=== PATIENT | female | born 1930 | race Caucasian/White ===

== ENCOUNTER → 2016-11-26 | Outpatient (CLI) | payer OTHER, MEDICARE | LOC: BMCIMAGING 14:14 | PROVIDERS: ATTEND Internal Medicine Cardiovascular Disease | DX: Z51.81 Encounter for therapeutic drug level monitoring (principal); I70.8 Atherosclerosis of other arteries; Z95.1 Presence of aortocoronary bypass graft ==

== ENCOUNTER 2017-02-08 19:37 | Inpatient (IN) | payer OTHER, MEDICARE ==
--- NOTE | 2017-02-08 19:49 | EDPHY ---
H & P Time Seen by Provider: 02/08/17 19:41 HPI/ROS: Chief complaint. Fever, altered mental status HPI. 86-year-old female who is aphasic for 7 years after a CVA here with her . History is obtained from the . She has been gradually slowing down and sleeping more in the past week. She had a regular checkup by her PCP on Friday 4 days ago and since that time she has been sleeping up to 16 hours a day and not eating or drinking. felt that maybe she had a fever. She has really had no increase in cough but does have a cough at night occasionally that is thought to be allergies. No urinary symptoms that he has been able to tell. ROS Constitutional. Generalized weakness, sleeping more Eyes. no problems with vision ENT. no sore throat, no nasal drainage Cardiovascular. no chest pain Respiratory. no shortness of breath, no cough Abdominal. no abdominal pain, no nausea/vomiting, no diarrhea . no problems urinating MS. no calf pain/swelling, no neck/back pain, no joint pain Skin. no rash Lymph. no swollen glands Neuro. Does not speak and has residual right-sided weakness after CVA Past Medical/Surgical History: Bypass surgery in 2004, CVA in 2008, dyslipidemia, pacemaker. She is on Eliquis for atrial fibrillation Social History: , nonsmoker, no Smoking Status: Never smoked Physical Exam: Alert well-developed female who falls asleep frequently during the interview and is aphasic. Vital signs show temp 37.1degrees and O2 saturation 91% on room air Eyes: Pupils equal and round no pallor or injection. ENT, Mouth: Mucous membranes are moist. Respiratory: There are no retractions, lungs are clear to auscultation. Cardiovascular: Regular rate and rhythm. Gastrointestinal: Abdomen is soft and nontender, no masses, bowel sounds normal. Neurological: Awake but sleepy. Right-sided weakness worse in the right upper extremity Skin: Warm and dry, no rashes. Musculoskeletal: Neck is supple nontender. Extremities symmetrical, full range of motion. Psychiatric: Patient does not speak in is difficult to tell that she is oriented. She certainly does open her eyes to voice however Constitutional: Initial Vital Signs Temperature (C) 37.1 C 02/08/17 19:42 Heart Rate 88 02/08/17 19:42 Respiratory Rate 18 02/08/17 19:42 Blood Pressure 127/73 H 02/08/17 19:42 O2 Sat (%) 91 L 02/08/17 19:42 O2 Delivery Mode Room Air Allergies/Adverse Reactions: albuterol [Albuterol] Allergy (Intermediate, Verified 10/12/13 19:35) Other-Enter Comments erythromycin base [Erythromycin Base] Allergy (Intermediate, Verified 10/12/13 19:35) Other-Enter Comments Penicillins Allergy (Intermediate, Verified 10/12/13 19:35) Rash Sulfa (Sulfonamide Antibiotics) Allergy (Intermediate, Verified 10/12/13 19:35) Other-Enter Comments sulfamethoxazole [From Septra] Allergy (Intermediate, Verified 10/12/13 19:35) Other-Enter Comments ibuprofen [From Advil] Allergy (Verified 10/12/13 19:35) Unknown trimethoprim [From Septra] Allergy (Verified 10/12/13 19:35) ERYTHROMCIN Allergy (Intermediate, Uncoded 10/12/13 19:35) Diarrhea GENTAMYCIN Allergy (Mild, Uncoded 10/12/13 19:35) Other-Enter Comments Home Medications: Medication Instructions Recorded COUMADIN 06/15/09 Aspirin 07/27/09 Coumadin 3 mg 07/27/09 Hydrochlorothiazide 07/27/09 Cephalexin 10/12/13 Lipitor 40 mg (RX) 10/12/13 TOPIRAMATE 10/12/13 Medical Decision Making - Diagnostics EKG Interpretation: EKG interpreted by me shows paced complexes with underlying atrial fibrillation. Borderline left axis deviation. No significant ST elevation or depression. Rate 79 Imaging Results: Imaging Impressions Chest X-Ray 02/08/17 19:48 Impression: No evidence for acute cardiopulmonary abnormality. Noncontrast head CT reviewed by me shows atrophy and old left large CVA. No evidence of acute bleed tonight Procedures: IV normal saline, sepsis workup Initial serum lactate is 3.0. Patient is being given fluids. Repeat lactate is ordered. Cath urine is yet to be performed. Patient going for head CT. Urinalysis is pending. While the lactate is elevated I suspect that this is due to dehydration and so far no evidence for infection ED Course/Re-evaluation: IV normal saline. Patient is given 30 milliliters/kilogram fluid bolus. She is fairly serial barely diff hydrated. She has elevated troponin as well as I have discussed findings with the patient and her . We discussed treatment plan including recommendation for admission. They expressed understanding and agreement I discussed the case with Dr. Gaona who will see the patient in the emergency department. She agrees to the admission Differential Diagnosis: I considered dehydration, sepsis including pneumonia and urinary tract infection. I considered CVA and intracranial bleeding is the patient is on blood thinners. Patient has an elevated troponin but no ST elevation on EKG - Data Points Laboratory Results: Laboratory Results 02/08/17 20:07 02/08/17 20:07 02/08/17 02/08/17 02/08/17 20:07 20:07 20:07 WBC 7.51 10^3/uL 10^3/uL (3.80-9.50) RBC 4.11 10^6/uL L 10^6/uL (4.18-5.33) Hgb 14.0 g/dL g/dL (12.6-16.3) Hct 44.2 % % (38.0-47.0) MCV 107.5 fL H fL (81.5-99.8) MCH 34.1 pg pg (27.9-34.1) MCHC 31.7 g/dL L g/dL (32.4-36.7) RDW 15.4 % H % (11.5-15.2) Plt Count 121 10^3/uL L 10^3/uL (150-400) MPV 11.3 fL fL (8.7-11.7) Neut % (Auto) 77.6 % H % (39.3-74.2) Lymph % (Auto) 16.5 % % (15.0-45.0) Door % (Auto) 5.5 % % (4.5-13.0) Eos % (Auto) 0.0 % L % (0.6-7.6) Baso % (Auto) 0.1 % L % (0.3-1.7) Nucleat RBC Rel Count 0.0 % % (0.0-0.2) Absolute Neuts (auto) 5.83 10^3/uL 10^3/uL (1.70-6.50) Absolute Lymphs (auto) 1.24 10^3/uL 10^3/uL (1.00-3.00) Absolute Monos (auto) 0.41 10^3/uL 10^3/uL (0.30-0.80) Absolute Eos (auto) 0.00 10^3/uL L 10^3/uL (0.03-0.40) Absolute Basos (auto) 0.01 10^3/uL L 10^3/uL (0.02-0.10) Absolute Nucleated RBC 0.00 10^3/uL 10^3/uL (0-0.01) Immature Gran % 0.3 % % (0.0-1.1) Immature Gran # 0.02 10^3/uL 10^3/uL (0.00-0.10) PT 20.2 SEC H SEC (12.0-15.0) INR 1.72 H (0.83-1.16) APTT 31.4 SEC SEC (23.0-38.0) VBG Lactic Acid Sodium 157 mEq/L H mEq/L (134-144) Potassium 3.7 mEq/L mEq/L (3.5-5.2) Chloride 122 mEq/L H mEq/L (97-110) Carbon Dioxide 20 mEq/l L mEq/l (22-31) Anion Gap 15 mEq/L mEq/L (8-16) BUN 54 mg/dL H mg/dL (7-23) Creatinine 1.5 mg/dL H mg/dL (0.6-1.0) Estimated GFR 33 Glucose 242 mg/dL H mg/dL (70-100) Calcium 9.4 mg/dL mg/dL (8.5-10.4) Total Bilirubin 0.8 mg/dL mg/dL (0.1-1.4) Troponin I 0.035 ng/mL H ng/mL (0-0.034) 02/08/17 20:07 WBC RBC Hgb Hct MCV MCH MCHC RDW Plt Count MPV Neut % (Auto) Lymph % (Auto) Door % (Auto) Eos % (Auto) Baso % (Auto) Nucleat RBC Rel Count Absolute Neuts (auto) Absolute Lymphs (auto) Absolute Monos (auto) Absolute Eos (auto) Absolute Basos (auto) Absolute Nucleated RBC Immature Gran % Immature Gran # PT INR APTT VBG Lactic Acid 3.0 mmol/L H mmol/L (0.7-2.1) Sodium Potassium Chloride Carbon Dioxide Anion Gap BUN Creatinine Estimated GFR Glucose Calcium Total Bilirubin Troponin I Medications Given: Discontinued Medications Sodium Chloride (Ns) 1,000 mls @ 0 mls/hr IV ONCE ONE; Wide Open PRN Reason: Protocol Stop: 02/08/17 20:10 Last Admin: 02/08/17 20:24 Dose: 1,000 mls Departure - Departure Disposition: [facility] Inpatient Acute Clinical Impression: Dehydration, Elevated troponin Altered mental status Qualifiers: Altered mental status type: disorientation Qualified Code(s): R41.0 - Disorientation, unspecified Condition: Fair Referrals: Laila Linn MD [Primary Care Provider] - As per Instructions
[2017-02-08] MEDS ORDERED: NS 1,000 ML IV ONE (20:09)
[2017-02-08 20:20] LABS: % IMMATURE GRANULYOCYTES 0.3 % (0.0-1.1); ABSOLUTE IMMATURE GRANULOCYTES 0.02 10^3/uL (0.00-0.10); ADD DIFF? NO; ADD MORPH? NO; ADD SCAN? NO; ATYPICAL LYMPHOCYTE FLAG 0 (0-99); FRAGMENT RBC FLAG 0 (0-99); HEMATOCRIT 44.2 % (38.0-47.0); LEFT SHIFT FLG 0 (0-99); LIPEMIA HEMOLYSIS FLAG 80 (0-99); MEAN CELL HEMOGLOBIN 34.1 pg (27.9-34.1); MEAN CELL HEMOGLOBIN CONCENTR. 31.7 g/dL (32.4-36.7); MEAN CELL VOLUME 107.5 fL (81.5-99.8); MEAN PLATELET VOLUME 11.3 fL (8.7-11.7); PLATELET CLUMPS FLAG 0 (0-99); PLATELET COUNT 121 10^3/uL (150-400); RED BLOOD CELL COUNT 4.11 10^6/uL (4.18-5.33); RED CELL DISTRIBUTION WIDTH 15.4 % (11.5-15.2)
[2017-02-08 20:29] LABS: INR 1.72 (0.83-1.16); PROTIME(PATIENT) 20.2 SEC (12.0-15.0)
[2017-02-08 20:30] LABS: APTT 31.4 SEC (23.0-38.0)
[2017-02-08 20:31] LABS: ANION GAP 15 mEq/L (8-16); BILIRUBIN,TOTAL 0.8 mg/dL (0.1-1.4); CALCIUM 9.4 mg/dL (8.5-10.4); CARBON DIOXIDE 20 mEq/l (22-31); CHLORIDE 122 mEq/L (97-110); CREATININE 1.5 mg/dL (0.6-1.0); GLOMERULAR FILTRATION RATE 33; GLUCOSE 242 mg/dL (70-100); POTASSIUM 3.7 mEq/L (3.5-5.2); SODIUM 157 mEq/L (134-144)
[2017-02-08] MEDS ORDERED: NS 1,300 ML IV ONE (20:33)
[2017-02-08 20:42] LABS: TROPONIN I 0.035 ng/mL (0-0.034)
--- NOTE | 2017-02-08 20:59 | CPEKG ---
Heart Rate: 79 RR Interval: 759 P-R Interval: 184 QRSD Interval: 98 QT Interval: 428 QTC Interval: 491 P [place]: 0 QRS [place]: 0 T Wave [place]: 113 EKG Severity - ABNORMAL ECG - EKG Impression: ATRIAL-PACED COMPLEXES EKG Impression: LEFT ATRIAL ABNORMALITY EKG Impression: NONSPECIFIC T ABNORMALITIES, ANT-LAT LEADS EKG Impression: BORDERLINE PROLONGED QT INTERVAL Electronically Signed By: Andrea Mills 08-Feb-2017 21:12:28
[2017-02-08 21:14] LABS: LACGHOST ORDER
[2017-02-08 21:23] LABS: COLOR AMBER; LEUKOCYTE ESTERASE,URINE TRACE (NEGATIVE); NITRITE,URINE NEGATIVE (NEGATIVE)
[2017-02-08 21:26] LABS: AMORPHOUS PRESENT /hpf (NONE-1+); BACTERIA TRACE /hpf (NONE SEEN); MUCUS 1+ /lpf (NONE-1+)
[2017-02-08] MEDS ORDERED: ONDANSETRON 4 MG/2 ML VIAL IVP PRN (21:56)
[2017-02-08] MEDS ORDERED: ACETAMINOPHEN 325 MG TAB PO PRN (21:56)
[2017-02-08] MEDS ORDERED: ONDANSETRON DISINTEGRATING 4 MG TAB PO PRN (21:56)
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
[2017-02-08] MEDS ORDERED: D5W 1,000 ML IV SCH (22:15)
[2017-02-09 03:30] LABS: TROPONIN I 0.031 ng/mL (0-0.034)
[2017-02-09 06:11] LABS: % IMMATURE GRANULYOCYTES 0.2 % (0.0-1.1); ABSOLUTE IMMATURE GRANULOCYTES 0.02 10^3/uL (0.00-0.10); ADD DIFF? NO; ADD MORPH? NO; ADD SCAN? NO; ATYPICAL LYMPHOCYTE FLAG 10 (0-99); FRAGMENT RBC FLAG 0 (0-99); HEMATOCRIT 33.9 % (38.0-47.0); HEMOGLOBIN 10.9 g/dL (12.6-16.3); LEFT SHIFT FLG 20 (0-99); LIPEMIA HEMOLYSIS FLAG 80 (0-99); MEAN CELL HEMOGLOBIN 34.6 pg (27.9-34.1); MEAN CELL HEMOGLOBIN CONCENTR. 32.2 g/dL (32.4-36.7); MEAN CELL VOLUME 107.6 fL (81.5-99.8); MEAN PLATELET VOLUME 11.4 fL (8.7-11.7); PLATELET CLUMPS FLAG 0 (0-99); PLATELET COUNT 65 10^3/uL (150-400); RED BLOOD CELL COUNT 3.15 10^6/uL (4.18-5.33); RED CELL DISTRIBUTION WIDTH 15.4 % (11.5-15.2)
[2017-02-09 06:13] LABS: ANION GAP 10 mEq/L (8-16); CALCIUM 7.8 mg/dL (8.5-10.4); CARBON DIOXIDE 17 mEq/l (22-31); CHLORIDE 125 mEq/L (97-110); CREATININE 0.9 mg/dL (0.6-1.0); GLOMERULAR FILTRATION RATE 60; GLUCOSE 143 mg/dL (70-100); SODIUM 152 mEq/L (134-144)
[2017-02-09] MEDS ORDERED: ENOXAPARIN 30 MG/0.3 ML SYR SC SCH (09:00)
[2017-02-09] MEDS ORDERED: NS 1,000 ML IV SCH (09:15)
[2017-02-09] MEDS ORDERED: PROTOCOL K PHOSPHATE 1 DOSE IV PRN (09:16)
[2017-02-09] MEDS ORDERED: PROTOCOL POTASSIUM 1 DOSE MISC PRN (09:16)
[2017-02-09] MEDS ORDERED: PROTOCOL MAGNESIUM 1 DOSE IV PRN (09:16)
[2017-02-09] MEDS ORDERED: ALTEPLASE 2 MG VIAL IVP PRN (10:05)
[2017-02-09] MEDS ORDERED: POTASSIUM CL 10 MEQ TAB PO ONE ×2 (10:21→21:21)
[2017-02-09] MEDS ORDERED: 1/2 NS 1,000 ML IV SCH (10:30)
[2017-02-09 10:34] LABS: POTASSIUM 3.1 mEq/L (3.5-5.2)
[2017-02-09] MEDS: CHOLECALCIFEROL VIT D3 1,000 UNITS TAB PO SCH (10:43)
[2017-02-09] MEDS: TOPIRAMATE 25 MG TAB PO SCH ×2 (10:43→20:00)
[2017-02-09] MEDS: MULTIVITAMINS 1 EACH TAB PO SCH (10:44)
[2017-02-09] MEDS: AMIODARONE HCL 200 MG TAB PO SCH (10:44)
[2017-02-09] MEDS: APIXABAN 2.5 MG TAB PO SCH ×2 (10:45→20:07)
[2017-02-09] MEDS: ASPIRIN 81 MG CHEWABLE TAB PO SCH (10:46)
--- NOTE | 2017-02-09 11:25 | ECHO ---
[id number] + + [address] : : [place] [address] : : [phone] + + Adult Echocardiographic Report + + :Name: EMMY QUEZADA MStudy Date: 02/09/2017 10:02 AM BP: 105/66 mmHg : : Hospital Admission Number: [id number] : :: 1930 Gender: Female Height: 60 in : :Age: 86 yrs Race: WH Weight: 95 lb : :Reason For Study: eval LVFX : : BSA: 1.4 meters2: :History: elev trop, CAD : + + MMode/2D Measurements \T\ Calculations IVSd: 0.92 cm LVIDd: 3.7 cm FS: 33.8 % Ao root diam: 2.6 cm LVPWd: 0.99 cm LVIDs: 2.4 cm EDV(Teich): 56.5 ml LA dimension: 2.9 cm ESV(Teich): 20.6 ml EF(Teich): 63.6 % Normal Measurement Values: + + :LVIDd (3.5-5.7cm) IVSd (0.6-1.1cm) LVPWd (0.6-1.1cm) Aortic Root (2.0-3.7cm)Left Atrium (1.5-4.0cm): :LV Vol(d) (76-115ml) LV Vol(s) (29-48ml) Ejec Fraction (50-65%)PV [place] (0.6- 1.2m/s) TV [place] (0.4-1.0m/s) : :MV E [place] (0.8-1.0m/s)MV A [place] (0.3-1.0m/s)LVOT [place] (0.7-1.2m/s) Asc Ao [place] ( 0.9-1.8m/s) : + + Doppler Measurements \T\ Calculations MV E max hernando: Ao V2 max: LV V1 max: PA V2 max: 66.6 cm/sec 76.0 cm/sec 86.9 cm/sec 71.9 cm/sec MV A max hernando: Ao max PG: LV V1 max PG: PA max P.6 cm/sec 2.3 mmHg 3.0 mmHg 2.1 mmHg MV E/A: 0.97 MV dec time: 0.27 sec TR max hernando: 192.7 cm/sec TR max P.9 mmHg Left Ventricle The left ventricle is normal in size and function. Mild concentric LVH noted. Ejection Fraction = 60-65%. No regional wall motion abnormalities noted. Right Ventricle The right ventricle is normal in size and function. Atria Mild left atrial enlargement by visual assessment. Right atrial size is normal. Mitral Valve There is no mitral valve stenosis. Mild MAC with no MV prolapse. There is mild mitral regurgitation. Tricuspid Valve The tricuspid valve is normal in structure and function. There is mild tricuspid regurgitation. Right ventricular systolic pressure is 20mmHg. Aortic Valve The aortic valve is trileaflet. Mild aortic sclerosis. There is no aortic stenosis. Mild AI noted. Pulmonic Valve The pulmonic valve is not well visualized. Great Vessels The aortic root is normal size. Pericardium/Pleural There is no pericardial effusion. Conclusion A two-dimensional transthoracic echocardiogram with M-mode and Doppler was performed. Limited apical and subcostals due to combative patient. 1)Normal LV size and systolic function with a LVEF of 64% and normal wall motions. 2)Mild concentric LVH. Pt combative and could not do full diastolic function testing. 3)Mild aortic valve sclerosis without stenosis. Mild AI noted. 4)Mild MR without MV prolapse. 5)Mild TR with estimated normal PA pressures. 6)Normal size ascending thoracic aorta with mild atheroma seen in vessel wong. Final Reading Physician: Derrick Winkler electronically signed on 02/09/2017 11:24 AM Ordering Physician: Judith Joya Performed By: Megha Sharp
--- NOTE | 2017-02-09 15:09 | HOSPPROG ---
Hospitalist Progress Note Assessment/Plan: * Hypernatremia due to hypovolemia -change IVF 1/2 NS to continue slow correction -goal 10 mEq/L in first 24 hours * Metabolic encephalopathy * h/o CVA (ischemic and hemorrhagic) with chronic right weak/aphasia * Afib s/p PCM -amiodarone, Eliquis * CAD/CABG * DM II * Malnutrition - dietary consult COR status - palliative care consult requested Subjective: screams every time we draw blood, poor IV access, screamed when they did ECHO. Seems uncomfortable Objective: Vital Signs Temp Pulse Resp BP Pulse Ox 36.4 C 76 18 118/71 93 02/09/17 12:00 02/09/17 12:00 02/09/17 12:00 02/09/17 12:00 02/09/17 12:00 Laboratory Results 02/09/17 05:50 02/09/17 10:30 02/08/17 02/09/17 02/10/17 05:59 05:59 05:59 Intake Total 1550 Output Total 50 Balance 1500 PT 20.2 SEC (12.0-15.0) H 02/08/17 20:07 INR 1.72 (0.83-1.16) H 02/08/17 20:07 CXR viewed, my personal interpretation is - negative Head CT - negative ECHO - normal EF - Physical Exam Constitutional: chronically ill appearing, uncomfortable, cachectic, No unkempt Cardiovascular: regular rate and rhythym, no murmur, rub, or gallop Respiratory: no respiratory distress, no rales or rhonchi, clear to auscultation Gastrointestinal: normoactive bowel sounds, soft, non-tender abdomen, no palpable masses Skin: no rashes or abrasions, no fluctuance, no induration Neurologic: No AAOx3 Psychiatric: encephalopathic, flat affect, agitated, No interacting appropriately ICD10 Worksheet Patient Problems: Problems Problem Status Onset Altered mental status Acute Dehydration Acute Elevated troponin Acute
[2017-02-09 19:18] LABS: POTASSIUM 3.7 mEq/L (3.5-5.2); SODIUM 150 mEq/L (134-144)
[2017-02-09] MEDS: ATORVASTATIN CALCIUM 40 MG TAB PO SCH (20:07)
[2017-02-09] MEDS ORDERED: POTASSIUM CL 20 MEQ/15 ML UDCUP PO ONE (21:30)
[2017-02-10] MEDS ORDERED: POTASSIUM Cl (KCl) 50 ML IV ONE (00:36)
[2017-02-10 03:27] LABS: % IMMATURE GRANULYOCYTES 0.3 % (0.0-1.1); ABSOLUTE IMMATURE GRANULOCYTES 0.03 10^3/uL (0.00-0.10); ADD DIFF? NO; ADD MORPH? NO; ADD SCAN? NO; ATYPICAL LYMPHOCYTE FLAG 0 (0-99); FRAGMENT RBC FLAG 0 (0-99); HEMATOCRIT 36.4 % (38.0-47.0); HEMOGLOBIN 11.8 g/dL (12.6-16.3); LEFT SHIFT FLG 0 (0-99); LIPEMIA HEMOLYSIS FLAG 80 (0-99); MEAN CELL HEMOGLOBIN 34.4 pg (27.9-34.1); MEAN CELL HEMOGLOBIN CONCENTR. 32.4 g/dL (32.4-36.7); MEAN CELL VOLUME 106.1 fL (81.5-99.8); MEAN PLATELET VOLUME 11.8 fL (8.7-11.7); PLATELET CLUMPS FLAG 20 (0-99); PLATELET COUNT 87 10^3/uL (150-400); RED BLOOD CELL COUNT 3.43 10^6/uL (4.18-5.33); RED CELL DISTRIBUTION WIDTH 14.8 % (11.5-15.2)
[2017-02-10 03:32] LABS: ANION GAP 6 mEq/L (8-16); CALCIUM 8.6 mg/dL (8.5-10.4); CARBON DIOXIDE 20 mEq/l (22-31); CHLORIDE 122 mEq/L (97-110); CREATININE 0.8 mg/dL (0.6-1.0); GLOMERULAR FILTRATION RATE > 60; GLUCOSE 94 mg/dL (70-100); MAGNESIUM 2.2 mg/dL (1.6-2.3); POTASSIUM 4.8 mEq/L (3.5-5.2); SODIUM 148 mEq/L (134-144)
[2017-02-10] MEDS: AMIODARONE HCL 200 MG TAB PO SCH (11:35)
[2017-02-10] MEDS: APIXABAN 2.5 MG TAB PO SCH (11:36)
[2017-02-10] MEDS: ASPIRIN 81 MG CHEWABLE TAB PO SCH (11:36)
[2017-02-10] MEDS: CHOLECALCIFEROL VIT D3 1,000 UNITS TAB PO SCH (11:36)
[2017-02-10] MEDS: MULTIVITAMINS 1 EACH TAB PO SCH (11:36)
[2017-02-10] MEDS: TOPIRAMATE 25 MG TAB PO SCH ×2 (11:59→21:11)
--- NOTE | 2017-02-10 14:42 | PDPCPN ---
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 Found to have hypernatremia from dehydration and started on IV fluids with slow correction in NA. Most recent level 145. Was DNR on previous admission but changed to full code by CAMACHO. Palliative care consulted for complex medical decision making. Met with John and daughter at the bedside this afternoon. John discussed how when Samantha had her stroke 7 years ago she was DNR but her full wishes were for continued medical care but per John there was a misunderstanding and she was made "comfort care only". He states he would not want her to have CPR or resuscitation but is hesitant to change her to DNR from their previous experience. He feels for now her wishes are for continued medical treatments to continue her good quality of life. She has caregivers at home as well as her family who are very involved. Discussed the MOST form and reviewed. John would like to think about it more before filling out the form. Assessment: Physical: - Pain: none - tylenol PRN - Poor appetite - encourage general diet - ensure/boost - Weakness - Has caregiver support at home - fall precautions Emotional/psychological: doing ok. Lots of support from family Advanced Care Planning: Is patient decisional?: No Code Status: Full- readdressed POA: John is MDPOA Plan: MOST form given to review. Will follow up again tomorrow for any additional questions. Subjective: non verbal Objective: Social History: to John. 5 children involved. Retired [employer]. Enjoys reading books and watching dancing with the stars. Medication list reviewed ROS: General: fatigue, weakness ENT: negative Resp: negative GI: poor appetite : negative MS: negative Skin: negative Neuro: chronic right sided weakness and aphasia Psych: negative Functional assessment: PPS: 50% Functional status: needs some assistance with ADLs. Vital Signs Temp Pulse Resp BP Pulse Ox 36.4 C 77 22 H 156/83 H 94 02/10/17 08:20 02/10/17 11:20 02/10/17 08:20 02/10/17 08:20 02/10/17 11:20 Laboratory Results 02/10/17 03:00 02/10/17 11:30 02/09/17 02/10/17 02/11/17 05:59 05:59 05:59 Intake Total 1550 1732 Output Total 50 Balance 1500 1732 PT 20.2 SEC (12.0-15.0) H 02/08/17 20:07 INR 1.72 (0.83-1.16) H 02/08/17 20:07 Physical Exam - Physical Exam General Appearance: alert, no apparent distress Respiratory: No respiratory distress, No accessory muscle use Skin: normal color, warm/dry Extremities: No pedal edema Neuro/Psych: alert, aphasia ICD10 Worksheet Patient Problems: Problems Problem Status Onset Altered mental status Acute Dehydration Acute Elevated troponin Acute Palliative care encounter Acute - ICD10 Problem Qualifiers (1) Palliative care encounter
--- NOTE | 2017-02-10 17:08 | HOSPPROG ---
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 no events tele (interp by me). partially alert Objective: Vital Signs Temp Pulse Resp BP Pulse Ox 36.4 C 83 18 124/69 H 93 02/10/17 15:32 02/10/17 15:32 02/10/17 15:32 02/10/17 15:32 02/10/17 15:32 Microbiology 02/08/17 21:15 Urine Culture - Final Urine,Clean Catch Three [place] Types Laboratory Results 02/10/17 03:00 02/10/17 11:30 02/09/17 02/10/17 02/11/17 05:59 05:59 05:59 Intake Total 1550 1732 Output Total 50 Balance 1500 1732 PT 20.2 SEC (12.0-15.0) H 02/08/17 20:07 INR 1.72 (0.83-1.16) H 02/08/17 20:07 - Physical Exam Constitutional: no apparent distress, appears nourished Eyes: PERRL, anicteric sclera Ears, Nose, Mouth, Throat: moist mucous membranes, hearing normal Cardiovascular: regular rate and rhythym, no murmur, rub, or gallop, No systolic murmur Respiratory: no respiratory distress, no rales or rhonchi Gastrointestinal: normoactive bowel sounds, soft, non-tender abdomen, No guarding, No rebound Genitourinary: no bladder fullness, No chicas in urethra Skin: warm, normal color, other (hand bleedimg under gauze) Musculoskeletal: No full muscle strength, No no muscle tenderness Neurologic: sensation intact bilaterally, No AAOx3 Psychiatric: interacting appropriately ICD10 Worksheet Patient Problems: Problems Problem Status Onset Altered mental status Acute Dehydration Acute Elevated troponin Acute Palliative care encounter Acute
[2017-02-10 20:00] LABS: POTASSIUM 3.7 mEq/L (3.5-5.2); SODIUM 144 mEq/L (134-144)
[2017-02-10] MEDS: ATORVASTATIN CALCIUM 40 MG TAB PO SCH (21:12)
[2017-02-10] MEDS ORDERED: POTASSIUM CL 10 MEQ TAB PO ONE (21:23)
[2017-02-11 05:32] LABS: % IMMATURE GRANULYOCYTES 0.3 % (0.0-1.1); ABSOLUTE IMMATURE GRANULOCYTES 0.02 10^3/uL (0.00-0.10); ADD DIFF? NO; ADD MORPH? NO; ADD SCAN? NO; ATYPICAL LYMPHOCYTE FLAG 0 (0-99); FRAGMENT RBC FLAG 0 (0-99); HEMATOCRIT 31.2 % (38.0-47.0); HEMOGLOBIN 10.1 g/dL (12.6-16.3); LEFT SHIFT FLG 0 (0-99); LIPEMIA HEMOLYSIS FLAG 80 (0-99); MEAN CELL HEMOGLOBIN 34.1 pg (27.9-34.1); MEAN CELL HEMOGLOBIN CONCENTR. 32.4 g/dL (32.4-36.7); MEAN CELL VOLUME 105.4 fL (81.5-99.8); MEAN PLATELET VOLUME 12.1 fL (8.7-11.7); PLATELET CLUMPS FLAG 0 (0-99); PLATELET COUNT 69 10^3/uL (150-400); RED BLOOD CELL COUNT 2.96 10^6/uL (4.18-5.33); RED CELL DISTRIBUTION WIDTH 14.6 % (11.5-15.2)
[2017-02-11 05:55] LABS: ANION GAP 8 mEq/L (8-16); CALCIUM 8.2 mg/dL (8.5-10.4); CARBON DIOXIDE 19 mEq/l (22-31); CHLORIDE 117 mEq/L (97-110); CREATININE 0.8 mg/dL (0.6-1.0); GLOMERULAR FILTRATION RATE > 60; GLUCOSE 81 mg/dL (70-100); MAGNESIUM 2.1 mg/dL (1.6-2.3); POTASSIUM 3.5 mEq/L (3.5-5.2); SODIUM 144 mEq/L (134-144)
[2017-02-11] MEDS ORDERED: POTASSIUM CL 10 MEQ TAB PO ONE (07:20)
[2017-02-11] MEDS: CHOLECALCIFEROL VIT D3 1,000 UNITS TAB PO SCH (12:12)
[2017-02-11] MEDS: AMIODARONE HCL 200 MG TAB PO SCH (12:12)
[2017-02-11] MEDS: TOPIRAMATE 25 MG TAB PO SCH ×2 (12:12→21:40)
[2017-02-11] MEDS: MULTIVITAMINS 1 EACH TAB PO SCH (12:13)
--- NOTE | 2017-02-11 16:24 | WOCRNPDOC ---
WOCRN Advanced Assessment Note - Skin Integrity Problem, Advanced Assess Right Hand Dressing Type: Kerlix Dressing Description: Saturated Exudate Color: Red Exudate Characteristic(s): Bloody Integumentary Issue Intervention: Dressing Applied (see comment below) Desire Wound Tissue: Thin, Painful/Tender Desire Wound Swelling: None Wound Bed Color: Red Wound Bed Constitution: Smooth Tissue Wound Edges: Irregular Site Odor: None Skin Integrity Problem Comment: Skin tear at dorsal hand, seeping blood continuously. Cleansed intact periwound skin with sterile NS and gauze. Applied Cavilon skin protectant to periwound, Thrombix to wound. After observing slowing of bleeding, covered forming clot with Adaptic Touch, layered with Mepilex Transfer and 1/6th of an ABD, secured with jacob wrap. MARYJANE Dang assisted with care. Nursing skin tear protocol may be implemented after a few days, when clotting is stable; Thrombix to remain in place for 7 days. oyster grower may be re-consulted if new concerns.
--- NOTE | 2017-02-11 16:26 | HOSPPROG ---
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 hand continues to bleed Objective: Vital Signs Temp Pulse Resp BP Pulse Ox 36.7 C 76 20 153/89 H 91 L 02/11/17 12:42 02/11/17 12:42 02/11/17 12:42 02/11/17 12:42 02/11/17 12:42 Microbiology 02/08/17 21:15 Urine Culture - Final Urine,Clean Catch Three [place] Types Laboratory Results 02/11/17 05:00 02/11/17 14:10 02/10/17 02/11/17 02/12/17 05:59 05:59 05:59 Intake Total 1777 803 4253 Balance 6032 182 7777 PT 20.2 SEC (12.0-15.0) H 02/08/17 20:07 INR 1.72 (0.83-1.16) H 02/08/17 20:07 - Physical Exam Constitutional: no apparent distress, appears nourished Eyes: PERRL, anicteric sclera Ears, Nose, Mouth, Throat: moist mucous membranes, hearing normal Cardiovascular: regular rate and rhythym, no murmur, rub, or gallop Respiratory: no respiratory distress, no rales or rhonchi Gastrointestinal: normoactive bowel sounds, soft, non-tender abdomen Genitourinary: no bladder fullness, No chicas in urethra Skin: warm, normal color Musculoskeletal: full muscle strength Neurologic: AAOx3 Psychiatric: interacting appropriately ICD10 Worksheet Patient Problems: Problems Problem Status Onset Altered mental status Acute Dehydration Acute Elevated troponin Acute Palliative care encounter Acute
[2017-02-11] MEDS: ATORVASTATIN CALCIUM 40 MG TAB PO SCH (21:40)
[2017-02-12 06:58] LABS: ANION GAP 5 mEq/L (8-16); CALCIUM 8.2 mg/dL (8.5-10.4); CARBON DIOXIDE 20 mEq/l (22-31); CHLORIDE 118 mEq/L (97-110); CREATININE 0.9 mg/dL (0.6-1.0); GLOMERULAR FILTRATION RATE 60; GLUCOSE 83 mg/dL (70-100); POTASSIUM 3.7 mEq/L (3.5-5.2); SODIUM 143 mEq/L (134-144)
--- NOTE | 2017-02-12 11:05 | HOSPPROG ---
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 discussed care w . anxious for dc Objective: Vital Signs Temp Pulse Resp BP Pulse Ox 36.3 C 79 16 109/71 95 02/12/17 08:00 02/12/17 09:40 02/12/17 08:00 02/12/17 08:00 02/12/17 08:00 Laboratory Results 02/11/17 05:00 02/12/17 06:25 02/11/17 02/12/17 02/13/17 05:59 05:59 05:59 Intake Total 750 2453 Balance 750 2453 PT 20.2 SEC (12.0-15.0) H 02/08/17 20:07 INR 1.72 (0.83-1.16) H 02/08/17 20:07 - Physical Exam Constitutional: no apparent distress, appears nourished, other (perhaps more alert) Eyes: PERRL, anicteric sclera Ears, Nose, Mouth, Throat: moist mucous membranes, hearing normal Cardiovascular: regular rate and rhythym, no murmur, rub, or gallop Respiratory: no respiratory distress, no rales or rhonchi Gastrointestinal: normoactive bowel sounds, soft, non-tender abdomen Genitourinary: no bladder fullness, No chicas in urethra Skin: warm, normal color Musculoskeletal: full muscle strength, no muscle tenderness Neurologic: AAOx3 ICD10 Worksheet Patient Problems: Problems Problem Status Onset Altered mental status Acute Dehydration Acute Elevated troponin Acute Palliative care encounter Acute
--- NOTE | 2017-02-12 11:07 | PDIAF ---
- Diagnosis Diagnosis: hypernatremia Code Status: Full Code - Medication Management Discharge Medications: Medications to Continue on Transfer Aspirin [Aspirin 81mg (*)] 81 mg PO DAILY 07/27/09 [Last Taken 02/08/17] Atorvastatin Calcium [Lipitor 40 mg (*)] 40 mg PO HS 10/12/13 [Last Taken 20:00] Topiramate [Topamax 25MG (*)] 50 mg PO BID 10/12/13 [Last Taken 02/08/17 20:00] Amiodarone HCl [Pacerone (*)] 100 mg PO DAILY 02/08/17 [Last Taken 02/08/17] Apixaban [Eliquis] 2.5 mg PO BID 02/08/17 [Last Taken 02/08/17 20:00] Cholecalciferol Vit D3 [Vitamin D3 (*)] 1,000 units PO DAILY 02/08/17 [Last Taken 02/08/17] Multivitamins [Multivitamin (*)] 1 each PO DAILY 02/08/17 [Last Taken 02/08/17] Discharge Medications: Refer to the Discharge Home Medication list for PRN reason. - Orders Services needed: Home Care, Registered Nurse Home Care Face to Face: I certify that this patient was under my care and that I had the required [id number] encounter meeting the encounter requirements on the discharge day. My findings support the fact that the patient is homebound as defined in CMS Chapter 7 Medicare Benefits Manual 30.1.1, The condition of the patient is such that there exists a normal inability to leave home and consequently, leaving home would require a considerable and taxing effort. Diet Texture: Dysphagia 1 - Pureed, Thin Liquids, Meds Crushed in Puree - Follow Up Care Current Providers and Referrals: Laila Linn MD [Primary Care Provider] - As per Instructions
[2017-02-12] MEDS: AMIODARONE HCL 200 MG TAB PO SCH (11:26)
[2017-02-12] MEDS: TOPIRAMATE 25 MG TAB PO SCH (11:27)
[2017-02-12] MEDS: CHOLECALCIFEROL VIT D3 1,000 UNITS TAB PO SCH (11:27)
[2017-02-12] MEDS: MULTIVITAMINS 1 EACH TAB PO SCH (11:27)
[2017-02-12 13:05] VITALS: BP 131/71; PULSE 82; RESP 19; TEMP 97; O2SAT 90
--- NOTE | 2017-02-12 13:09 | GDS ---
[f rep st] DISCHARGE SUMMARY DISCHARGE DIAGNOSES: 1. Hyponatremia. 2. Metabolic encephalopathy. 3. History of cerebrovascular accident with hemiparesis and dysphagia. 4. Skin tear with ongoing bleeding. 5. Type 2 diabetes. 6. Atrial fibrillation. 7. Sick sinus syndrome with pacemaker. 8. Acute kidney injury. HOSPITAL COURSE: Please see admission history and physical by Dr. Judith Joya. The patient pre sented essentially obtunded on the afternoon of the . She had been not eating, sleeping 16 hour s a day. She was found to be hypernatremic at 157, as well as with acute kidney injury. She was gi biran gentle hypotonic fluids with appropriate correction. She has been eating and drinking well whil e here. The patient is a full code. She was seen by Palliative Care, and at this point in time, she remains full code. It sounds like there is some descent in the family with the daughters favoring more of a comfort style approach to her care, with her still being optimistic that she will continue to do well. A skin tear kept in the hospital an additional day or 2. Starting on the her aspirin and Eliqu is were held. She was seen by Wound Care. The wound has stopped oozing. I have recommended to hol d her aspirin and Eliquis for an additional 2 days prior to resuming. [facility] /[id number]/MODL
== END 2017-02-12 13:37 | disposition home health service (06) | DRG 682 ==
LOC: F2W 22:04
PROVIDERS: ADMIT Internal Medicine; ATTEND Internal Medicine
PROC: 02HV33Z Insertion of Infusion Device into Superior Vena Cava, Percutaneous Approach (ICD-10-PCS; principal; 2017-02-09)
DX: N17.9 Acute kidney failure, unspecified (principal); E87.0 Hyperosmolality and hypernatremia; G93.41 Metabolic encephalopathy; I69.320 Aphasia following cerebral infarction; I69.351 Hemiplegia and hemiparesis following cerebral infarction affecting right dominant side; I48.91 Unspecified atrial fibrillation; I25.10 Atherosclerotic heart disease of native coronary artery without angina pectoris; E11.9 Type 2 diabetes mellitus without complications; E46 Unspecified protein-calorie malnutrition; Z95.1 Presence of aortocoronary bypass graft; S61.411A Laceration without foreign body of right hand, initial encounter; X58.XXXA Exposure to other specified factors, initial encounter; Z79.01 Long term (current) use of anticoagulants; Z79.82 Long term (current) use of aspirin; Z95.0 Presence of cardiac pacemaker; Y92.239 Unspecified place in hospital as the place of occurrence of the external cause
CPT/HCPCS: 92526-GN; 92610-GN; 97116-GP; 97162-GP; 97166-GO; C1751; G8978-GP-CJ; G8979-GP-CI; G8987-GO-CN; G8988-GO-CN; G8989-GO-CN; G8996-GN-CK; G8997-GN-CI

== ENCOUNTER → 2018-05-04 | Outpatient (CLI) | payer OTHER, MEDICARE | LOC: FIMAGING 14:30 | DX: J90 Pleural effusion, not elsewhere classified (principal); Z92.29 Personal history of other drug therapy ==

== ENCOUNTER 2018-06-30 14:37 | Emergency (ER) | payer OTHER, MEDICARE ==
--- NOTE | 2018-06-30 15:20 | EDPHY ---
H & P Stated Complaint: RLQ pain intermittent x 2 days. Last BM yesterday. Hx of CVA with aphasia Time Seen by Provider: 06/30/18 14:57 HPI/ROS: Chief Complaint: Abdominal pain HPI: 87-year-old woman with a history of a CVA 9 years ago which left her aphasic has had 2 episodes of abdominal pain over the last 2 days. Her states that at approximately 8:30 p.m. for the last 2 nights, just as they are beginning to eat dinner. The patient has complained of severe right-sided abdominal pain. This pain lasted for a few seconds and went away. She had a normal night without any difficulties. No nausea or vomiting. No diarrhea or constipation. No dark black stools. No recent cough or illness. She does not have a history of similar episodes in the past. No fevers or chills. They spoke with her primary care physician recommended that she come here for further evaluation. ROS: 10 systems were reviewed and were negative except those elements noted in the HPI. PMH: CVA with resultant expressive aphasia Social History: No smoking, no alcohol, no recreational drug use Family History: non-contributory Physical Exam: Gen: Awake, Alert, No Distress HEENT: Nose: no rhinorrhea Eyes: PERRLA, EOMI Mouth: Moist mucosa Neck: Supple, no JVD Chest: nontender, lungs diminished on the left, no focal rales or rhonchi, no wheeze Heart: S1, S2 normal, no murmur Abd: Soft, non-tender, no guarding Back: no CVA tenderness, no midline tenderness Ext: no edema, non-tender Skin: no rash Neuro: Right-sided weakness, the expressive aphasia, Sensation grossly intact, Strength 5/5 in bilateral upper and lower extremities - Personal History Current Tetanus Diphtheria and Acellular Pertussis (TDAP): Unsure - Medical/Surgical History Hx Asthma: No Hx Chronic Respiratory Disease: No Hx Diabetes: No Hx Cardiac Disease: Yes Hx Renal Disease: No Hx Cirrhosis: No Hx Alcoholism: No Hx HIV/AIDS: No Hx Splenectomy or Spleen Trauma: No Other PMH: BIPASS SURGERYN 2004. STROKE 2009. HIGH CHOLESTEROL. pacer with SSS. Diabetes - Social History Smoking Status: Never smoked Constitutional: Initial Vital Signs Temperature (C) 36.3 C 06/30/18 14:54 Heart Rate 104 H 06/30/18 14:54 Respiratory Rate 16 06/30/18 14:54 Blood Pressure 132/83 H 06/30/18 14:54 O2 Sat (%) 96 06/30/18 14:54 O2 Delivery Mode Room Air Allergies/Adverse Reactions: Penicillins Allergy (Severe, Verified 02/08/17 21:41) Swelling/neck,face,throat albuterol [Albuterol] Allergy (Intermediate, Verified 02/08/17 21:41) Other-Enter Comments caffeine Allergy (Intermediate, Verified 02/08/17 21:41) Other-Enter Comments erythromycin base [Erythromycin Base] Allergy (Intermediate, Verified 02/08/17 21:41) Other-Enter Comments Sulfa (Sulfonamide Antibiotics) Allergy (Intermediate, Verified 10/12/13 19:35) Other-Enter Comments sulfamethoxazole [From Septra] Allergy (Intermediate, Verified 02/08/17 21:41) Rash trimethoprim [From Septra] Allergy (Intermediate, Verified 02/08/17 21:41) Rash gentamicin Allergy (Unknown, Verified 02/08/17 21:41) Other-Enter Comments ibuprofen [From Advil] Allergy (Unknown, Verified 02/08/17 21:41) Unknown Home Medications: Medication Instructions Recorded Aspirin [Aspirin 81mg (*)] 81 mg PO DAILY 07/27/09 Atorvastatin Calcium [Lipitor 40 40 mg PO HS 10/12/13 mg (*)] Topiramate [Topamax 25MG (*)] 50 mg PO BID 10/12/13 Amiodarone HCl [Pacerone (*)] 100 mg PO DAILY 02/08/17 Apixaban [Eliquis] 2.5 mg PO BID 02/08/17 Cholecalciferol Vit D3 [Vitamin D3 1,000 units PO DAILY 02/08/17 (*)] Multivitamins [Multivitamin (*)] 1 each PO DAILY 02/08/17 Medical Decision Making - Diagnostics Imaging Results: Imaging Impressions Abdomen CT 06/30/18 15:18 Impression: 1. Trace fluid in the left pelvis. No definite bowel abnormality. 2. Numerous lesions within the kidney, some of which appears suspicious in the upper pole left kidney. Recommend comparison with any prior imaging if available or consideration for MRI. 3. Dilatation of the pancreatic duct with a hypodense 1.1 cm lesion in the pancreatic head. Recommend two-year follow-up imaging. 4. Moderate left pleural effusion. Findings and recommendations discussed with Mohan Solomon MD at 1656 hour, 06/30/2018. Imaging: Discussed imaging studies w/ wrapper stripper Radiologist ED Course/Re-evaluation: CT scan results noted. No acute obstruction or surgical intra-abdominal process. There are several lesions noted which need to be followed up by primary care physician. Abdomen soft benign. Remainder of the laboratory evaluations show a mild transaminitis otherwise normal liver function. Plan will be to discharge with follow-up with primary care physician, return for any concerns. - Data Points Laboratory Results: Laboratory Results 06/30/18 15:27 06/30/18 15:27 06/30/18 06/30/18 15:27 15:27 WBC 5.12 10^3/uL 10^3/uL (3.80-9.50) RBC 4.36 10^6/uL 10^6/uL (4.18-5.33) Hgb 14.8 g/dL g/dL (12.6-16.3) Hct 44.5 % % (38.0-47.0) MCV 102.1 fL H fL (81.5-99.8) MCH 33.9 pg pg (27.9-34.1) MCHC 33.3 g/dL g/dL (32.4-36.7) RDW 15.1 % % (11.5-15.2) Plt Count 123 10^3/uL L 10^3/uL (150-400) MPV 10.8 fL fL (8.7-11.7) Neut % (Auto) 58.6 % % (39.3-74.2) Lymph % (Auto) 32.8 % % (15.0-45.0) [place] % (Auto) 7.2 % % (4.5-13.0) Eos % (Auto) 1.0 % % (0.6-7.6) Baso % (Auto) 0.2 % L % (0.3-1.7) Nucleat RBC Rel Count 0.0 % % (0.0-0.2) Absolute Neuts (auto) 3.00 10^3/uL 10^3/uL (1.70-6.50) Absolute Lymphs (auto) 1.68 10^3/uL 10^3/uL (1.00-3.00) Absolute Monos (auto) 0.37 10^3/uL 10^3/uL (0.30-0.80) Absolute Eos (auto) 0.05 10^3/uL 10^3/uL (0.03-0.40) Absolute Basos (auto) 0.01 10^3/uL L 10^3/uL (0.02-0.10) Absolute Nucleated RBC 0.00 10^3/uL 10^3/uL (0-0.01) Immature Gran % 0.2 % % (0.0-1.1) Immature Gran # 0.01 10^3/uL 10^3/uL (0.00-0.10) Sodium 141 mEq/L mEq/L (135-145) Potassium 3.9 mEq/L mEq/L (3.3-5.0) Chloride 110 mEq/L mEq/L (97-110) Carbon Dioxide 22 mEq/l mEq/l (22-31) Anion Gap 9 mEq/L mEq/L (6-14) BUN 38 mg/dL H mg/dL (7-23) Creatinine 1.2 mg/dL H mg/dL (0.6-1.0) Estimated GFR 43 Glucose 169 mg/dL H mg/dL (70-100) Calcium 9.3 mg/dL mg/dL (8.5-10.4) Total Bilirubin 0.7 mg/dL mg/dL (0.1-1.4) AST 90 IU/L H IU/L (14-46) ALT 104 IU/L H IU/L (9-52) Alkaline Phosphatase 113 IU/L IU/L (38-126) Total Protein 6.6 g/dL g/dL (6.3-8.2) Albumin 3.6 g/dL g/dL (3.5-5.0) Lipase 234 IU/L IU/L (23-300) Medications Given: Discontinued Medications Sodium Chloride (Ns) 500 mls @ 0 mls/hr IV ONCE ONE; Wide Open PRN Reason: Protocol Stop: 06/30/18 16:32 Last Admin: 06/30/18 16:40 Dose: 500 mls Departure - Departure Disposition: Home, Routine, Self-Care Clinical Impression: Abdominal pain, Dehydration Condition: Good Instructions: Abdominal Pain (ED), Dehydration (ED) Additional Instructions: There are several nonspecific lesions in your kidneys and your pancreas which will need further follow up with your physician as an outpatient. Follow up with primary care physician in 2-3 days for further evaluation. Return to the emergency department for increasing abdominal pain, nausea vomiting, fevers, chills, constipation, or any other concerns. Referrals: Laila Linn MD [Primary Care Provider] - As per Instructions
[2018-06-30 15:43] LABS: PLATELET COUNT 123 10^3/uL (150-400)
[2018-06-30] MEDS ORDERED: IOPAMIDOL (ISOVUE-300) 100 ML BTL ONE (16:02)
[2018-06-30] MEDS ORDERED: NS 500 ML IV ONE (16:31)
[2018-06-30 17:32] VITALS: BP 140/70
== END 2018-06-30 17:32 | disposition home or self-care (01) ==
DX: R10.9 Unspecified abdominal pain (principal); E86.9 Volume depletion, unspecified; R53.1 Weakness; R47.01 Aphasia; E78.00 Pure hypercholesterolemia, unspecified; Z86.73 Personal history of transient ischemic attack (TIA), and cerebral infarction without residual deficits
CPT/HCPCS: 74177; 96360; 99285; Q9967

== ENCOUNTER → 2018-07-10 | Outpatient (CLI) | payer OTHER, MEDICARE | LOC: BMCIMAGING 15:00 | DX: J90 Pleural effusion, not elsewhere classified (principal); Z79.899 Other long term (current) drug therapy ==

== ENCOUNTER 2018-09-20 15:26 | Emergency (ER) | payer OTHER, MEDICARE ==
[2018-09-20] MEDS ORDERED: CODE BLUE RESUSCITATION 1 EA MISC ONE (16:00)
--- NOTE | 2018-09-20 16:13 | EDPHY ---
H & P Stated Complaint: cardiac arrest Time Seen by Provider: 09/20/18 15:30 HPI/ROS: CHIEF COMPLAINT: Cardiac arrest HISTORY OF PRESENT ILLNESS: The patient comes into the emergency department status post cardiac arrest with CPR in progress. She has been receiving CPR for approximately 20 min. She received multiple defibrillations without improvement in her underlying circulation. The patient received multiple doses of epinephrine. The patient does have a cardiac history. She has a pacemaker. There is no history of recent fall or trauma. The patient was observed to have a witnessed fall by her while leaving a movie today. REVIEW OF SYSTEMS: Unobtainable secondary to her critical state Source: Patient Exam Limitations: No limitations - Personal History Current Tetanus Diphtheria and Acellular Pertussis (TDAP): Unsure - Medical/Surgical History Other PMH: cva 9 years ago, pacer - Social History Smoking Status: Unknown if ever smoked - Physical Exam Exam: General Appearance: Obtunded unresponsive Eyes: Fixed and dilated pupils ENT, Mouth: Mucous membranes moist Respiratory: [id number] Cardiovascular: CPR in progress Gastrointestinal: No distension Neurological: GCS 3 Skin: Warm and dry, no rashes Musculoskeletal: No gross deformity Extremities: symmetrical, full range of motion Constitutional: O2 Delivery Mode Bag Valve Mask Medical Decision Making Procedures: Procedure: RSI Intubation Indication for the procedure was cardiac arrest. The patient was orally endotracheally intubated under direct visualization with a 7.5 ETT. Tracheal intubation was confirmed with misting on the tube; breath sounds were auscultated equally bilaterally; appropriate color change with [place] CO2 detector, capnography waveform is appropriate, oxygen saturation after procedure is 70% with CPR. The procedure was performed by myself.' ED Course/Re-evaluation: ED course: Patient arrives to the emergency department with CPR in progress. He was placed on a monitor was noted to be in PEA. The patient received additional dose of epinephrine. CPR was continued. The patient was intubated by myself without complication. Repeat rhythm strip demonstrated possible VFib defibrillation performed with conversion to PEA CPR continued. Cardiac ultrasound demonstrates no meaningful cardiac activity. Patient's was consulted. Resuscitation efforts stopped. Patient was pronounced by myself at 3:40 p.m.. Activated Sludge Attendant has been notified. Critical Care Time: Critical care time exclusive of procedures and exclusive of the PA's time was 35 minutes, performed by myself, Deandre Dejesus MD. Patient presents to the ED after a cardiac arrest. Patient was unresponsive to all interventions. Patient ultimately in the emergency department. - Data Points Laboratory Results: 09/20/18 15:42 POC Hgb 15.6 gm/dL gm/dL (12.6-16.3) POC Hct 46 % % (38-47) POC Sodium 146 mEq/L H mEq/L (135-145) POC Potassium 4.1 mEq/L mEq/L (3.3-5.0) POC Chloride 114 mEq/L H mEq/L (97-110) POC BUN 32 mg/dL H mg/dL (7-23) POC Creatinine 1.2 mg/dL H mg/dL (0.6-1.0) POC Glucose 261 mg/dL H mg/dL (70-100) Medications Given: Discontinued Medications Miscellaneous Medication (Code Blue Resuscitation) 1 ea MISC EDNOW ONE Stop: 09/20/18 16:01 Last Admin: 09/20/18 16:03 Dose: 1 ea Point of Care Test Results: Chemistry 09/20/18 15:42 POC Sodium 146 mEq/L H mEq/L (135-145) POC Potassium 4.1 mEq/L mEq/L (3.3-5.0) POC Chloride 114 mEq/L H mEq/L (97-110) POC BUN 32 mg/dL H mg/dL (7-23) POC Creatinine 1.2 mg/dL H mg/dL (0.6-1.0) POC Glucose 261 mg/dL H mg/dL (70-100) ISTAT H&H 09/20/18 15:42 POC Hgb 15.6 gm/dL gm/dL (12.6-16.3) POC Hct 46 % % (38-47) Departure - Departure Disposition: Clinical Impression: Cardiac arrest Condition: Critical Referrals: Laila Linn MD [Primary Care Provider] - As per Instructions
== END 2018-09-20 18:49 | disposition expired ==
LOC: MERGE 15:26 → EDBD 15:26
PROC: 0BH17EZ Insertion of Endotracheal Airway into Trachea, Via Natural or Artificial Opening (ICD-10-PCS; principal; 2018-09-20)
PROC: 5A12012 Performance of Cardiac Output, Single, Manual (ICD-10-PCS; 2018-09-20)
DX: I46.9 Cardiac arrest, cause unspecified (principal)
CPT/HCPCS: 82435-PO; 82565-PO; 82947-PO; 84132-PO; 84295-PO; 84520-PO; 85014-ER